=== PATIENT | male | born 1990 | race Caucasian/White ===

== ENCOUNTER 2024-02-07 19:52 | Outpatient (CLI) | payer OTHER ==
--- NOTE | 2024-02-08 17:54 | Ultrasound Report ---
PROCEDURE: Extremity Soft Tissue Limited INDICATIONS: WRIST MASS TECHNIQUE: Real-time scanning was performed of the left wrist, with image documentation. COMPARISON: None. FINDINGS: Focused ultrasound examination of posterior left wrist at patient's reported area of palpa ble lump and pain shows anechoic structure within the dorsal left wrist soft tissue and measures 1.3 x 1 x 0.5 cm in size and show no internal vascularity. IMPRESSION: Finding is most consistent with a ganglion cyst over dorsal aspect of left wrist measure s 1.3 x 1 x 0.5 cm in size. Reviewed by: Sina Pinzon MD on 02/08/2024 5:53 PM PDT Approved by: Sina Pinzon MD on 02/08/2024 5:53 PM PDT Station ID: [id number]
== END 2024-02-07 19:53 | disposition home or self-care (01) ==
LOC: DI 19:52
PROVIDERS: ATTEND Family Medicine
DX: R93.6 Abnormal findings on diagnostic imaging of limbs (principal)

== ENCOUNTER 2024-06-03 10:31 | Day surgery (SDC) | payer OTHER ==
[2024-06-03] MEDS: LACTATED RINGERS 1,000 ML IV ONE ×2 (10:51→13:50)
[2024-06-03 10:52] VITALS: O2SAT 99
--- NOTE | 2024-06-03 11:20 | ANESTHESIA ---
Pre-Anesthesia VS, & Labs - Diagnosis desires sterilization - Procedure vasectomy Vital Signs: Temp Pulse Resp BP Pulse Ox O2 Flow Rate 36 C L 94 14 122/85 H 99 06/03/24 10:46 06/03/24 10:46 06/03/24 10:46 06/03/24 10:46 06/03/24 10:46 Height: 5 ft 9 in Weight (kg): 104 kg Body Mass Index: 33.8 BMI Classification: Obese - NPO >8 hours Home Medications and Allergies Home Medications: Ambulatory Orders ARIPiprazole [Abilify] 5 mg PO DAILY 05/28/24 Ibuprofen [Motrin] 600 mg PO Q6H PRN 05/28/24 Lisdexamfetamine Dimesylate [Vyvanse] 40 mg PO DAILY 05/28/24 Omeprazole 20 mg PO DAILY 05/28/24 buPROPion HCL [Bupropion Xl] 300 mg PO DAILY 05/28/24 ARIPiprazole [Abilify] 5 mg PO DAILY 05/28/24 Ibuprofen [Motrin] 600 mg PO Q6H PRN 05/28/24 Lisdexamfetamine Dimesylate [Vyvanse] 40 mg PO DAILY 05/28/24 Omeprazole 20 mg PO DAILY 05/28/24 buPROPion HCL [Bupropion Xl] 300 mg PO DAILY 05/28/24 Allergies/Adverse Reactions: Allergies Allergy/AdvReac Type Severity Reaction Status Date / Time No Known Drug Allergies Allergy Verified 05/28/24 14:40 Anes History & Medical History - Anesthetic History Anesthesia Complications: reports: No previous complications - Medical History Cardiovascular: reports: None Pulmonary: reports: None Gastrointestinal: reports: GERD Urinary: reports: Kidney stones Neuro: reports: None Musculoskeletal: reports: Osteoarthritis Endocrine/Autoimmune: reports: None Skin: reports: None Smoking Status: Former smoker (quit 3 years ago) Psychosocial: reports: No issues indicated - Surgical History Eyes Ears Nose Throat (EENT): reports: Tonsil/Adenoidectomy Exam General: Alert, Oriented x3, Cooperative, No acute distress Dental: WNL Mouth Openin Fingerbreadth Neck Mobility: Normal Mallampati classification: II Thyromental Distance: 4-6 cm Mental/Cognitive Status: Alert/Oriented X3, Normal for patient Plan Anesthesia Type: General, MAC Consent for Procedure(s) Verified and Reviewed: Yes Code Status: Attempt Resuscitation ASA classification: 2-Mild systemic disease Is this case an emergency?: No
[2024-06-03] MEDS ORDERED: fentaNYL 100 MCG/2 ML VIAL ONE (12:04)
[2024-06-03] MEDS ORDERED: MIDAZOLAM 2 MG/2 ML VIAL ONE (12:05)
[2024-06-03] MEDS ORDERED: PROPOFOL 500 MG/50 ML 500 MG/50 ML VIAL ONE (12:05)
[2024-06-03] MEDS: LIDOCAINE 1% 50 ML MDV SUBQ ONE (12:59)
[2024-06-03] MEDS ORDERED: lidocaine 1% 20 ML MDV ONE (13:00)
--- NOTE | 2024-06-03 13:52 | Discharge Plan ---
Discharge Plan Problem Reviewed?: Yes Disposition: 01 Home, Self Care Condition: Good Activity Restrictions: Additional Comments Shower Restrictions: No Driving Restrictions: No Instruction Topics: Vasectomy No Scalpel Additional Instructions or Follow Up instructions: After three months, contact Dr Castanon's office to arrange for you to drop off a semen sample at a lab to confirm no more sperm No Smoking: If you smoke, Please STOP! Call for help. Follow-up with: Chaim Castanon MD [Provider Admit Priv/Credential] -
--- NOTE | 2024-06-03 13:52 | OPERATIVE REPORT ---
Operative Report - General Procedure Date: 06/03/24 Planned Procedure: Bilateral vasectomy Pre-Op Diagnosis: elective sterilization Procedure Performed: Bilateral vasectomy Post Op Diagnosis: elective sterilization - Procedure Note Primary Surgeon: Lg Anesthesia Provider: WASHINGTON Garcia Anesthesia Technique: MAC Pathology: none Estimated Blood Loss (mL): 0 Findings: Normal vasectomy - Other Other Information/Narrative: After informed consent obtained patient brought to the OR and laid in supine position. The patient was anesthetized per anesthesia protocols and then prepped and draped in usual sterile fashion. A formal timeout was performed reconfirming the patient, procedure and laterality He is vas deferens identified through his right hemiscrotum. 1% lidocaine was used as local. Using a sharp mosquito is scrotal tissue was dissected away and his vas sheath was grasped using a ring clamp. This was sharply incised and the vas was identified and pulled out. It was clamped on both sides and the intervening 1 cm segment was cauterized away. The ends were cauterized as well. The ends were suture-ligated with chromic suture and then the distal end was buried using a fascial interposition stitch using 3-0 chromic suture. There was no bleeding. His skin was closed using a 3-0 chromic horizontal mattress stitch. An identical procedure performed on the left side. Band-Aids were placed. This concluded the procedure and the patient tolerated the procedure well. All counts were correct. He will have a semen analysis performed in 3 months to confirm azoospermia.
[2024-06-03 14:58] VITALS: BP 116/72
--- NOTE | 2024-06-03 16:13 | ANESTHESIA POST OP EVALUATION ---
Anesthesia Post Eval - Post Anesthesia Eval Vitals: Last Vital Signs Temp 36.6 C 06/03/24 14:45 Pulse 80 06/03/24 14:45 Resp 16 06/03/24 14:45 BP 116/72 06/03/24 14:45 Pulse Ox 99 06/03/24 14:45 O2 Flow Rate CV Function Including HR & BP: Stable Pain Control: Satisfactory Nausea & Vomiting: Negative Mental Status: Baseline Respiratory Status: Airway Patent Hydration Status: Satisfactory Anesthesia Complications: None
== END 2024-06-03 10:32 | disposition home or self-care (01) ==
LOC: SDS 10:31
PROVIDERS: ATTEND Urology
DX: Z30.2 Encounter for sterilization (principal); E66.9 Obesity, unspecified; Z68.33 Body mass index [BMI] 33.0-33.9, adult; Z87.891 Personal history of nicotine dependence
CPT/HCPCS: 55250; J7120